=== PATIENT | male | born 1945 | race African-American/Black ===

== ENCOUNTER 2016-10-24 08:16 | Emergency (ER) | payer MEDICARE ==
--- NOTE | 2016-10-24 08:45 | ER Document Report ---
ED Extremity Problem, Upper - General Time seen by provider: 08:45 Mode of Arrival: Ambulatory Information source: Patient TRAVEL OUTSIDE OF THE [place] IN LAST 30 DAYS: No - HPI Patient complains to provider of: Pain, Left, Arm Associated symptoms: Other - See above <NAMRATA BUENO - Last Filed: 10/24/16 08:46> <MARTHATEAGAN Burnham - Last Filed: 10/24/16 13:23> - General Chief Complaint: Arm Pain Stated Complaint: ARM PAIN Notes: Patient is a 71 year old male, with a past medical history including HTN, DM, and prostate cancer, who presents to the emergency department complaining of left arm pain onset 4 days ago. Patient states that the pain began that morning and has been constant and worsening since. Patient states pain is located in his upper left arm, is not radiating, and is exacerbated by movement. Patient also complains of nausea and diaphoresis this morning after walking outside. Patient does not recall any recent repetitive arm exercises. Patient states that he has only been able to sleep about 2 hours per night since the pain began. Patient denies chest pain. Patient currently takes losartan, pravastatin , metformin, baby Asa, fiber, B12, and a multivitamin. PCP: Dr. Velásquez (NAMRATA BUENO) This 71-year-old male patient comes emergency room complaining of pain to the left elbow region that started a few days ago. He got acutely worse this morning. He has been taking aspirin for last few days for this discomfort. Not recall any injury or excessive use. He reports he was unable to sleep more than a couple hours last night due to the pain. This morning he was out walking around and became nauseous and diaphoretic. He does not have a history of coronary artery disease. He does have a history of type II diabetes and hypertension. He takes only metformin for diabetes. He notes that the pain is worse when he moves the left elbow. Exam shows considerable tenderness in the proximal brachioradialis muscle, and in the soft tissues surrounding the medial humeral epicondyle. He is not able to fully extend the elbow due to pain. Palpating the radial head is a little tender. Pronating and supinating the forearm causes considerable pain in the elbow There does not appear to be any swelling in the elbow joint itself. He reports he was able to fully extend last week, and he is able to fully extend the right elbow. X-ray does not show any abnormality in the elbow. There is no history of gout. (TEAGAN THOMAS) - Related Data Allergies/Adverse Reactions: No Known Allergies Allergy (Verified 10/24/16 08:20) Past Medical History - General Information source: Patient - Social History Smoking Status: Unknown if Ever Smoked Family History: Reviewed & Not Pertinent Patient has suicidal ideation: No Patient has homicidal ideation: No - Past Medical History Cardiac Medical History: Reports: Hx Hypercholesterolemia, Hx Hypertension Endocrine Medical History: Reports: Hx Diabetes Mellitus Type 2 Malignancy Medical History: Reports Hx Prostate Cancer Past Surgical History: Reports: Other - Hx prostatectomy - Immunizations Hx Diphtheria, Pertussis, Tetanus Vaccination: Yes <NAMRATA BUENO - Last Filed: 10/24/16 08:46> Review of Systems - Review of Systems Constitutional: See HPI, Diaphoresis EENT: No symptoms reported Cardiovascular: No symptoms reported Respiratory: No symptoms reported Gastrointestinal: See HPI, Nausea Genitourinary: No symptoms reported Male Genitourinary: No symptoms reported Musculoskeletal: See HPI, Other - left arm pain Skin: No symptoms reported Hematologic/Lymphatic: No symptoms reported Neurological/Psychological: No symptoms reported -: Yes All other systems reviewed and negative <NAMRATA BUENO - Last Filed: 10/24/16 08:46> Physical Exam - Vital signs Interpretation: Normal - General General appearance: Appears well, Alert - HEENT Head: Normocephalic, Atraumatic - Respiratory Respiratory status: No respiratory distress Chest status: Nontender Breath sounds: Normal Chest palpation: Normal - Cardiovascular Rhythm: Regular Heart sounds: Normal auscultation Murmur: No - Extremities General lower extremity: Normal inspection Arm: Tender - Tenderness to palpation of proximal brachioradialis muscle, lateral humerus condyle, and medial epicondyle. Patient unable to fully straighten left elbow - Neurological Neuro grossly intact: Yes Cognition: Normal Orientation: AAOx4 Jose G Coma Scale Eye Opening: Spontaneous Jose G Coma Scale Verbal: Oriented Jose G Coma Scale Motor: Obeys Commands Jose G Coma Scale Total: 15 Speech: Normal - Psychological Associated symptoms: Normal affect, Normal mood - Skin Skin Temperature: Warm Skin Moisture: Dry Skin Color: Normal <NAMRATA BUENO - Last Filed: 10/24/16 08:46> Course - Laboratory Result Diagrams: 10/24/16 08:37 10/24/16 08:37 <NAMRATA BUENO - Last Filed: 10/24/16 08:46> - Laboratory Result Diagrams: 10/24/16 08:37 10/24/16 08:37 - Diagnostic Test Radiology reviewed: Image reviewed, Reports reviewed - Chest x-ray shows minimal left basilar atelectasis with diaphragm elevation on the left. Previous CT scan shows the same diaphragm elevation. Left elbow does not show any bony abnormality. - EKG Interpretation by Ut EKG shows normal: Sinus rhythm, [place], Intervals, QRS Complexes, ST-T Waves Rhythm: APC's P Waves: LAE When compared to previous EKG there are: No significant change <TEAGAN THOMAS - Last Filed: 10/24/16 13:23> - Re-evaluation Re-evalutation: 10/24/16 11:49 The patient's total CK was 910, repeat is only slightly lower at 886. The troponin was undetectable when checked 2 hours apart. Patient will be given a sling to protect his left elbow injury. 10/24/16 11:55 The patient does not recall injuring his left elbow, but clinically is quite tender to palpate the muscles and ligaments around the elbow. Additionally he cannot extend the elbow fully. There is considerable pain when he tries to extend the elbow, or with pronation and supination of the forearm.. He is on statin therapy which is a possibility for his elevated CK enzymes. 10/24/16 12:54 A uric acid level was added and came back at 8.4. The possibility that this may well be gout. He will be started on prednisone. He is cautioned to drink extra amounts of water because of the elevated CK and the sugars which will go up. I discussed the case with his primary care provider Dr. Godinez, who will follow him in the office tomorrow afternoon. (TEAGAN THOMAS) - Vital Signs Vital signs: Temp Pulse Resp BP Pulse Ox 97.8 F 71 14 124/83 98 10/24/16 08:25 10/24/16 08:25 10/24/16 13:01 10/24/16 13:01 10/24/16 13:01 - Laboratory Laboratory results interpreted by me: 10/24/16 10/24/16 10/24/16 08:37 08:37 08:37 RBC 5.56 H RDW 14.2 H BUN 28 H Creatinine 1.56 H Est GFR ( Amer) 54 L Est GFR (Non-Af Amer) 44 L Glucose 125 H Total Bilirubin 1.5 H Creatine Kinase 910 H CK-MB (CK-2) 10.00 H 10/24/16 10/24/16 10:43 10:43 RBC RDW BUN Creatinine Est GFR ( Amer) Est GFR (Non-Af Amer) Glucose Total Bilirubin Creatine Kinase 886 H CK-MB (CK-2) 9.43 H Discharge <NAMRATA BUENO - Last Filed: 10/24/16 08:46> <TEAGAN THOMAS - Last Filed: 10/24/16 13:23> - Discharge Clinical Impression: Elbow pain, left Rhabdomyolysis Qualifiers: Rhabdomyolysis type: non-traumatic Qualified Code(s): M62.82 - Rhabdomyolysis Gout attack Qualifiers: Gout site: elbow Gout etiology: unspecified cause Laterality: left Qualified Code(s): M10.9 - Gout, unspecified Condition: Stable Disposition: HOME, SELF-CARE Additional Instructions: Your lab work suggests that you have rhabdomyolysis. This is caused by the breakdown of skeletal muscle cells. This can occur from trauma, or from statin therapy. An elevated uric acid level suggests the elbow pain may be due to gout. Gout: You may have gout in the left elbow. Gout is a problem caused by an excess of uric acid, a natural chemical found in the body. The cause of this disease is unknown. Gout arthritis occurs when crystals of uric acid form in the joints. The big toe is the most common joint involved, but any joint can become affected. Persons with gout may also form uric acid kidney stones, resulting in flank pain and blood in the urine. Nodules of uric acid may form under the skin. The first step of treatment is to decrease the inflammation in the joint with antiinflammatory medication. Medication to lower the uric acid level in the blood may then be prescribed.. Your elevated muscle enzymes could be related to injury, or could be caused by the statins you're taking for cholesterol. Your exam and history do not suggest this is a heart related issue, but you do have risk factors for coronary artery disease. You should return if the pain gets worse, if the pain goes into your chest, if there is shortness of breath, nausea or sweating with this. Use the sling to protect the elbow from movement. Take the pain medication as needed. Stop taking your statin medication for the time being. Start the prednisone tomorrow. Drink plenty of fluids today. Follow-up with Dr. Velásquez tomorrow afternoon in the office at 2:45 PM. RETURN TO THE EMERGENCY ROOM IF ANY NEW OR WORSENING SYMPTOMS. Prescriptions: Oxycodone HCl/Acetaminophen [Percocet 5-325 mg Tablet] 1 tab PO ASDIR PRN #15 tablet PRN Reason: Prednisone [Deltasone 10 mg Tablet] 10 mg PO ASDIR PRN #21 tablet PRN Reason: Referrals: KAUSHIK VELÁSQUEZ MD [Primary Care Provider] - 10/25/16 2:45 pm (Follow-up with Dr. Velásquez in the office tomorrow at 2:45 PM) Scribe Attestation: 10/24/16 13:23 I personally performed the services described in the documentation, reviewed and edited the documentation which was dictated to the scribe in my presence, and it accurately records my words and actions. (TEAGAN THOMAS) Scribe Documentation - Scribe Written by Cherelle:: cherelle Cook, 10/24/16, [id number] acting as scribe for :: Martha <NAMRATA BUENO - Last Filed: 10/24/16 08:46>
[2016-10-24 08:50] LABS: ABSOLUTE BASOPHILS # (AUTO) 0.1 10^3/uL (0.0-0.2); ABSOLUTE EOSINOPHILS # (AUTO) 0.4 10^3/uL (0.0-0.6); ABSOLUTE LYMPHOCYTES (AUTO) 1.8 10^3/uL (0.5-4.7); ABSOLUTE MONOCYTES (AUTO) 0.5 10^3/uL (0.1-1.4); ABSOLUTE NEUT (AUTO) 7.7 10^3/uL (1.7-8.2); BASOPHILS % (AUTO) 0.8 % (0-2); EOSINOPHILS % (AUTO) 4.2 % (0-6); HEMATOCRIT 47.6 % (37.9-51.0); HEMOGLOBIN 15.7 g/dL (13.5-17.0); HGB HCT DIFFERENCE -0.5; LYMPHOCYTES % (AUTO) 16.8 % (13-45); MEAN CORPUSCULAR HEMOGLOBIN 28.2 pg (27.0-33.4); MEAN CORPUSCULAR VOLUME 86 fl (80-97); MONOCYTES % (AUTO) 4.7 % (3-13); RED BLOOD COUNT 5.56 10^6/uL (4.35-5.55); RED CELL DISTRIBUTION WIDTH 14.2 % (11.5-14.0); SEGMENTED NEUTROPHILS % (AUTO) 73.5 % (42-78); WHITE BLOOD COUNT 10.5 10^3/uL (4.0-10.5)
[2016-10-24 09:06] LABS: ALANINE AMINOTRANSFERASE 40 U/L (21-72); ALBUMIN 4.2 g/dL (3.5-5.0); ALKALINE PHOSPHATASE 71 U/L (38-126); ANION GAP 11 (5-19); ASPARTATE AMINO TRANSFERASE 55 U/L (17-59); BILIRUBIN,DIRECT 0.2 mg/dL (0.0-0.4); BILIRUBIN,TOTAL 1.5 mg/dL (0.2-1.3); BLOOD UREA NITROGEN 28 mg/dL (7-20); CALCIUM 9.3 mg/dL (8.4-10.2); CARBON DIOXIDE 30 mmol/L (22-30); CHLORIDE 101 mmol/L (98-107); CREATINE KINASE 910 U/L (55-170); CREATININE RESULT 1.56 mg/dL (0.52-1.25); GLUCOSE 125 mg/dL (75-110); POTASSIUM 4.8 mmol/L (3.6-5.0); SODIUM 142.1 mmol/L (137-145); TOTAL PROTEIN 7.6 g/dL (6.3-8.2)
[2016-10-24 09:20] LABS: TROPONIN I < 0.012 ng/mL
[2016-10-24 09:30] LABS: PROTHROMBIN TIME 12.8 SEC (11.4-15.4)
[2016-10-24 11:28] LABS: CREATINE KINASE MB 9.43 ng/mL (<4.55); TROPONIN I < 0.012 ng/mL
[2016-10-24] MEDS ORDERED: OXYCODONE-ACETAMINOPHEN 5-325 MG TABLET PO ONE (11:49)
[2016-10-24 12:10] LABS: ADD ON TESTING BLD IN LAB ACKNOWLEDGE
[2016-10-24 12:20] LABS: URIC ACID 8.4 mg/dL (3.5-8.5)
[2016-10-24] MEDS ORDERED: PREDNISONE 20 MG TABLET PO ONE (12:51)
[2016-10-24 13:13] VITALS: BP 124/83
--- NOTE | 2016-10-24 13:27 | EKG REPORT ---
SEVERITY:- BORDERLINE ECG - SINUS RHYTHM ATRIAL PREMATURE COMPLEX PROBABLE LEFT ATRIAL ABNORMALITY : Confirmed by: Lance Ramirez MD 24-Oct-2016 13:26:52
== END 2016-10-24 13:20 | disposition home or self-care (01) ==
LOC: ER 08:16
DX: M25.522 Pain in left elbow (principal); M62.82 Rhabdomyolysis; M10.9 Gout, unspecified; M79.602 Pain in left arm; I10 Essential (primary) hypertension; E11.9 Type 2 diabetes mellitus without complications; Z85.46 Personal history of malignant neoplasm of prostate; Z79.899 Other long term (current) drug therapy
CPT/HCPCS: 93005; 99283; 36415; 82553; 82550; 84550; 85025; 85610; 80053; 84484; 71020; 73080; 93010; A9270 ×2; J7512

== ENCOUNTER → 2016-11-03 | Outpatient (CLI) | payer MEDICARE ==
[2016-11-03 09:21] LABS: ANION GAP 9 (5-19); BLOOD UREA NITROGEN 32 mg/dL (7-20); CALCIUM 9.7 mg/dL (8.4-10.2); CARBON DIOXIDE 32 mmol/L (22-30); CHLORIDE 98 mmol/L (98-107); CHOLESTEROL 209.43 mg/dL (0-200); CREATINE KINASE 844 U/L (55-170); CREATININE RESULT 1.72 mg/dL (0.52-1.25); Direct HDL 74 mg/dL (>40); GLUCOSE 99 mg/dL (75-110); POTASSIUM 5.7 mmol/L (3.6-5.0); SODIUM 138.6 mmol/L (137-145); TRIGLYCERIDES 167 mg/dL (<150); URIC ACID 7.1 mg/dL (3.5-8.5)
[2016-11-03 09:32] LABS: DIRECT LDL 78 mg/dL (<100)
[2016-11-03 09:33] LABS: VLDL CHOLESTEROL 33.4 mg/dL (10-31)
== END ==
LOC: LAB 08:42
PROVIDERS: ATTEND Internal Medicine
DX: M10.9 Gout, unspecified (principal); M79.1 Myalgia; R25.2 Cramp and spasm; E11.9 Type 2 diabetes mellitus without complications; E78.00 Pure hypercholesterolemia, unspecified; Z79.899 Other long term (current) drug therapy
CPT/HCPCS: 36415; 80048; 80061; 82550; 83735; 84550; 85652

== ENCOUNTER → 2017-01-18 | Outpatient (CLI) | payer MEDICARE | LOC: LAB 10:40 | PROVIDERS: ATTEND Internal Medicine | DX: Z12.5 Encounter for screening for malignant neoplasm of prostate (principal) | CPT/HCPCS: 36415; G0103 ==

== ENCOUNTER → 2018-05-21 | Outpatient (CLI) | payer MEDICARE | LOC: OD 12:34 | PROVIDERS: ATTEND Internal Medicine | DX: C61 Malignant neoplasm of prostate (principal) | CPT/HCPCS: 36415; 84153 ==

== ENCOUNTER → 2018-08-28 | Outpatient (CLI) | payer MEDICARE ==
[2018-08-28 08:19] LABS: ABSOLUTE EOSINOPHILS # (AUTO) 0.4 10^3/uL (0.0-0.6); ABSOLUTE LYMPHOCYTES (AUTO) 2.1 10^3/uL (0.5-4.7); ABSOLUTE MONOCYTES (AUTO) 0.4 10^3/uL (0.1-1.4); BASOPHILS % (AUTO) 0.8 % (0-2); EOSINOPHILS % (AUTO) 6.3 % (0-6); HEMATOCRIT 50.7 % (37.9-51.0); HEMOGLOBIN 16.8 g/dL (13.5-17.0); LYMPHOCYTES % (AUTO) 35.7 % (13-45); MEAN CORPUSCULAR HEMOGLOBIN 28.9 pg (27.0-33.4); MEAN CORPUSCULAR HGB CONC 33.1 g/dL (32.0-36.0); MEAN CORPUSCULAR VOLUME 87 fl (80-97); MONOCYTES % (AUTO) 6.6 % (3-13); PLATELET COUNT 178 10^3/uL (150-450); RED CELL DISTRIBUTION WIDTH 13.8 % (11.5-14.0); SEGMENTED NEUTROPHILS % (AUTO) 50.6 % (42-78); TOTAL CELLS COUNTED % (AUTO) 100 %
[2018-08-28 08:42] LABS: ALANINE AMINOTRANSFERASE 45 U/L (21-72); ALBUMIN 4.1 g/dL (3.5-5.0); ALKALINE PHOSPHATASE 70 U/L (38-126); ANION GAP 6 (5-19); ASPARTATE AMINO TRANSFERASE 56 U/L (17-59); BILIRUBIN,DIRECT 0.2 mg/dL (0.0-0.4); BILIRUBIN,TOTAL 0.6 mg/dL (0.2-1.3); BLOOD UREA NITROGEN 31 mg/dL (7-20); CALCIUM 9.5 mg/dL (8.4-10.2); CARBON DIOXIDE 32 mmol/L (22-30); CHLORIDE 104 mmol/L (98-107); CHOLESTEROL 204.45 mg/dL (0-200); GLUCOSE 101 mg/dL (75-110); POTASSIUM 5.1 mmol/L (3.6-5.0); SODIUM 142.1 mmol/L (137-145); TOTAL PROTEIN 7.3 g/dL (6.3-8.2); TRIGLYCERIDES 147 mg/dL (<150)
[2018-08-28 08:54] LABS: DIRECT LDL 98 mg/dL (<100)
== END ==
LOC: LAB 07:59
PROVIDERS: ATTEND Internal Medicine
DX: E11.9 Type 2 diabetes mellitus without complications (principal); I10 Essential (primary) hypertension; Z79.899 Other long term (current) drug therapy
CPT/HCPCS: 36415; 80053; 80061; 85025

== ENCOUNTER → 2018-08-28 | Outpatient (CLI) | payer MEDICARE, OTHER ==
--- NOTE | 2018-08-28 10:57 | RADIOLOGY REPORT (SQ) ---
EXAM DESCRIPTION: KNEE RIGHT 4 VIEWS COMPLETED DATE/TIME: 08/28/2018 8:42 am REASON FOR STUDY: UNILATERAL PRIMARY OSTEOARTHRITIS, RIGHT KNEE M17.11 UNILATERAL PRIMARY OSTEOARTH RITIS, RIGHT KNEE COMPARISON: None. NUMBER OF VIEWS: Four views. TECHNIQUE: AP, lateral, and both oblique radiographic images acquired of the right knee. LIMITATIONS: None. FINDINGS: MINERALIZATION: Normal. BONES: No acute fracture or dislocation. No worrisome bone lesions. JOINT: Slight to mild narrowing of the medial and lateral compartments of the knee. No effusion. SOFT TISSUES: Small 5 mm opaque density in the medial soft tissues distal thigh, may represent a for eign body. No soft tissue swelling. OTHER: No other significant finding. IMPRESSION: 1. Slight to mild narrowing of the medial and lateral compartments of the knee. 2. No acute osseous findings. 3. Additional findings as above. TECHNICAL DOCUMENTATION: JOB ID: [id number] [employer]- All Rights Reserved Reading location - IP/workstation name: [email or web address]
== END ==
LOC: RAD 08:20
PROVIDERS: ATTEND Internal Medicine
DX: M17.11 Unilateral primary osteoarthritis, right knee (principal)

== ENCOUNTER → 2019-08-26 | Outpatient (CLI) | payer MEDICARE, OTHER | LOC: OD 10:15 | PROVIDERS: ATTEND Orthopaedic Surgery | DX: M67.431 Ganglion, right wrist (principal) | CPT/HCPCS: 36415; 82565; 84520 ==